=== PATIENT | male | born 1980 | race Caucasian/White ===

== ENCOUNTER 2024-02-29 11:44 | Emergency (ER) | payer SELFPAY ==
[2024-02-29] MEDS ORDERED: Zofran 4 MG/2 ML VIAL ONE (12:14)
[2024-02-29] MEDS ORDERED: MORPHINE SULFATE 4 MG INJ ONE (12:15)
[2024-02-29] MEDS ORDERED: Sodium Chloride 0.9% 1000 ML 1,000 ML ONE (12:15)
[2024-02-29 12:16] VITALS: TEMP 96.6
[2024-02-29] MEDS: Zofran 4 MG/2 ML VIAL IV ONE (12:18)
[2024-02-29] MEDS: MORPHINE SULFATE 4 MG INJ IV ONE (12:18)
[2024-02-29] MEDS: Sodium Chloride 0.9% 1000 ML 1,000 ML IV STA (12:18)
[2024-02-29 12:22] LABS: Absolute Neutrophil Ct (ANC) 11.63 x10^3/uL (1.78-5.38); BASOPHIL % 0.4 % (0.2-1.2); Basophil (Absolute #) 0.07 x10^3/uL (0.01-0.08); Eosinophil % 2.1 % (0.8-7.0); Eosinophil (Absolute #) 0.33 x10^3/uL (0.04-0.54); Hematocrit 48.4 % (40.1-51.0); Hemoglobin 15.8 g/dL (13.7-17.5); IMMATURE GRAN # 0.08 x10^3u/L (0.001-0.031); IMMATURE GRAN % 0.5 % (0.001-0.429); Lymphocyte (Absolute #) 2.37 x10^3/uL (1.32-3.57); Lymphocytes % 15.1 % (21.8-53.1); Mean Cell Volume 86.3 fL (79.0-92.2); Mean Corpuscular Hemoglobin 28.2 pg (25.7-32.2); Mean Corpuscular Hgb Concent. 32.6 g/dL (32.3-36.5); Mean Platelet Volume 8.1 fL (9.4-12.4); Monocyte (Absolute #) 1.22 x10^3/uL (0.30-0.82); Monocytes % 7.8 % (5.3-12.2); Neutrophil % 74.1 % (34.0-67.9); Platelet Count 301 x10^3/uL (163-337); Red Blood Count 5.61 x10^6/uL (4.63-6.08); Red Cell Distribution Width 12.8 % (11.6-14.4); White Blood Count 15.7 x10^3/uL (4.23-9.07)
[2024-02-29 12:36] LABS: ALBUMIN 4.6 g/dL (3.5-5.0); ANION GAP 12.6 MEQ/L (5-15); BILIRUBIN,TOTAL 0.4 mg/dL (0.2-1.3); Calcium 9.7 mg/dL (8.4-10.2); Creatinine 1 1.54 mg/dL (0.66-1.25); Potassium 4.4 mmol/L (3.5-5.1)
--- NOTE | 2024-02-29 12:37 | ERPHSYRPT ---
- History of Present Illness Patient Subjective Stated Complaint: Right lower abdominal pain Triage Nursing Assessment: Patient ambulated back to ED and transferred self to bed. Patient A+O X 3. Patient's skin flushed and diaphoretic. Patient states he started having right lower abdominal discomfort early this am that has gotten worse. Patient complains of right lower abdominal pain 8/10 with nausea. Patient unable to get comfortable in bed. Physician History: Patient is 44-year-old male with sick significant past medical history of kidney stone was driving through [facility] while developed abdominal pain on the right lower quadrant. Patient states that he started having pain to 3 hours ago he tried to hold it so that he can reach his home but his pain got worse while driving show he stop by at [facility] emergency room. Patient denies any nausea vomiting. Patient also had a kidney stone in the past but he states that pain is not like the kidney stone. Pain is mainly in the right lower quadrant not radiating. Patient denies any diarrhea nausea vomiting. Timing/Duration: today Quality: cramping Abdominal Pain Onset Location: RLQ Pain Radiation: no radiation Severity of Pain-Max: moderate Severity of Pain-Current: moderate Modifying Factors: Improves With: nothing Associated Symptoms: denies symptoms Previous symptoms: no prior history Allergies/Adverse Reactions: doxycycline Allergy (Verified 02/29/24 11:59) Home Medications: Atenolol 50 mg [Tenormin 50 mg] 1 tab PO DAILY 02/29/24 [History] Gemfibrozil [Lopid] 600 mg PO BID 02/29/24 [History] Levothyroxine Sodium 1 tab PO DAILY 02/29/24 [History] Rosuvastatin Calcium 1 tab PO DAILY 02/29/24 [History] Venlafaxine HCl ER 75 mg [Effexor XR 75 MG] 3 cap PO DAILY 02/29/24 [History] Hx Influenza Vaccination/Date Given: No Hx Pneumococcal Vaccination/Date Given: No Immunizations Up to Date: Yes Travel Risk - International Travel Have you traveled outside of the country in past 3 weeks: No - Emerging Infectious Disease Are you exhibiting symptoms associated with any current EIDs: No - Review of Systems Constitutional: No Fever, No Chills Eyes: No Symptoms Ears, Nose, & Throat: No Symptoms Respiratory: No Cough, No Dyspnea Cardiac: No Chest Pain, No Edema, No Syncope Abdominal/Gastrointestinal: Abdominal Pain, Nausea, No Vomiting, No Diarrhea Genitourinary Symptoms: No Dysuria Musculoskeletal: No Back Pain, No Neck Pain Skin: No Rash Neurological: No Dizziness, No Focal Weakness, No Sensory Changes Psychological: No Symptoms Endocrine: No Symptoms All Other Systems: Reviewed and Negative - Past Medical History Pertinent Past Medical History: Yes Neurological History: No Pertinent History ENT History: No Pertinent History Cardiac History: High Cholesterol, Hypertension Respiratory History: No Pertinent History Endocrine Medical History: Hypothyroidism Musculoskeletal History: No Pertinent History GI Medical History: No Pertinent History History: No Pertinent History Psycho-Social History: Other Male Reproductive Disorders: No Pertinent History - Past Surgical History Past Surgical History: No Neuro Surgical History: No Pertinent History Cardiac: No Pertinent History Respiratory: No Pertinent History Gastrointestinal: No Pertinent History Genitourinary: No Pertinent History Musculoskeletal: No Pertinent History Male Surgical History: No Pertinent History - Social History Smoking Status: Never smoker Exposure to second hand smoke: No Drug Use: none - Social Determinants of Health Will the patient participate in the screening: Yes Do you worry about a steady place to live?: No Do you have any problems with any of the following?: No known problems In the past 12 months,have you had to go without utilities?: No Transportation Issues: No Has anyone in your support network made you feel unsafe?: No Have you or anyone in your house had to go without enough: No - Nursing Vital Signs Nursing Vital Signs: Initial Vital Signs O2 Sat by Pulse Oximetry 97 02/29/24 11:58 Pain Scale Pain Intensity 5 - Physical Exam General Appearance: no apparent distress, alert Eye Exam: PERRL/EOMI, eyes nml inspection Ears, Nose, Throat Exam: normal ENT inspection, pharynx normal, moist mucous membranes Neck Exam: normal inspection, non-tender, supple, full range of motion Respiratory Exam: normal breath sounds, lungs clear, No respiratory distress Cardiovascular Exam: regular rate/rhythm, normal heart sounds Gastrointestinal/Abdomen Exam: soft, tenderness (RLQ), No distention, No mass, No guarding, No rebound Back Exam: normal inspection, normal range of motion, No CVA tenderness, No vertebral tenderness Extremity Exam: normal inspection, normal range of motion, pelvis stable Neurologic Exam: alert, oriented x 3, cooperative, normal mood/affect, nml cerebellar function, sensation nml, No motor deficits Skin Exam: normal color, warm, dry SpO2: 96 - Course Nursing assessment & vital signs reviewed: Yes - CT Exams Abdomen/Pelvis CT Interpretation: Tele-radiologist Report Ordered Tests: Active Orders 24 hr Category Date Time Status ABDOMEN AND PELVIS W CONTRAST [CT] Stat Exams 02/29/24 12:11 Completed AMYLASE Stat Lab 02/29/24 11:40 Completed CBC W DIFF Stat Lab 02/29/24 11:40 Completed CMP Stat Lab 02/29/24 11:40 Completed LIPASE Stat Lab 02/29/24 11:40 Completed UA W/RFX UR CULTURE Stat Lab 02/29/24 14:03 Completed Medication Summary Discontinued Medications Generic Name Dose Route Start Last Admin Trade Name Freq PRN Reason Stop Dose Admin Fentanyl Citrate 100 mcg 02/29/24 14:10 02/29/24 14:14 Fentanyl Citrate 100 Mcg/2 Ml* Vial IV 02/29/24 14:11 100 mcg STAT ONE Administration Fentanyl Citrate Confirm 02/29/24 14:13 Fentanyl Citrate 100 Mcg/2 Ml* Vial Administered 02/29/24 14:14 Dose 100 mcg .ROUTE .STK-MED ONE Sodium Chloride 1,000 mls @ 999 mls/hr 02/29/24 12:10 02/29/24 13:20 Sodium Chloride 0.9% 1000 Ml IV 02/29/24 13:10 Infused .Q1H1M STA Infusion Sodium Chloride Confirm 02/29/24 12:15 Sodium Chloride 0.9% 1000 Ml Administered 02/29/24 12:16 Dose 1,000 mls @ ud .ROUTE .STK-MED ONE Cefazolin Sodium 1 gm in 100 mls @ 200 mls/hr 02/29/24 13:09 02/29/24 14:04 Cefazolin 1 Gm/100 Ml Nacl Ivpb IV 02/29/24 13:38 Infused STAT STA Infusion Cefazolin Sodium Confirm 02/29/24 13:23 Cefazolin 1 Gm/100 Ml Nacl Ivpb Administered 02/29/24 13:24 Dose 1 gm in 100 mls @ ud IV .STK-MED ONE Morphine Sulfate 4 mg 02/29/24 12:10 02/29/24 12:18 Morphine Sulfate 4 Mg/Ml Injection IV 02/29/24 12:11 4 mg STAT ONE Administration Morphine Sulfate Confirm 02/29/24 12:15 Morphine Sulfate 4 Mg/Ml Injection Administered 02/29/24 12:16 Dose 4 mg .ROUTE .STK-MED ONE Ondansetron HCl 4 mg 02/29/24 12:10 02/29/24 12:18 Ondansetron Hcl 4 Mg/2 Ml Vial IV 02/29/24 12:11 4 mg STAT ONE Administration Ondansetron HCl Confirm 02/29/24 12:14 Ondansetron Hcl 4 Mg/2 Ml Vial Administered 02/29/24 12:15 Dose 4 mg .ROUTE .STK-MED ONE Lab/Rad Data: Laboratory Result Diagrams 02/29/24 11:40 02/29/24 11:40 Laboratory Results 02/29/24 02/29/24 02/29/24 Range/Units 14:03 11:40 11:40 WBC 15.7 H (4.23-9.07) x10^3/uL RBC 5.61 (4.63-6.08) x10^6/uL Hgb 15.8 (13.7-17.5) g/dL Hct 48.4 (40.1-51.0) % MCV 86.3 (79.0-92.2) fL MCH 28.2 (25.7-32.2) pg MCHC 32.6 (32.3-36.5) g/dL RDW 12.8 (11.6-14.4) % Plt Count 301 (163-337) x10^3/uL MPV 8.1 L (9.4-12.4) fL Gran % 74.1 H (34.0-67.9) % Immature Gran % (Auto) 0.5 H (0.001-0.429) % Nucleat RBC Rel Count 0.0 (0.00-0.2) % Eos # (Auto) 0.33 (0.04-0.54) x10^3/uL Immature Gran # (Auto) 0.08 H (0.001-0.031) x10^3u/L Absolute Lymphs (auto) 2.37 (1.32-3.57) x10^3/uL Absolute Monos (auto) 1.22 H (0.30-0.82) x10^3/uL Absolute Nucleated RBC 0.00 (0.00-0.012) x10^3u/L Lymphocytes % 15.1 L (21.8-53.1) % Monocytes % 7.8 (5.3-12.2) % Eosinophils % 2.1 (0.8-7.0) % Basophils % 0.4 (0.2-1.2) % Absolute Granulocytes 11.63 H (1.78-5.38) x10^3/uL Basophils # 0.07 (0.01-0.08) x10^3/uL Sodium 138 (135-145) mmol/L Potassium 4.4 (3.5-5.1) mmol/L Chloride 100 (98-107) mmol/L Carbon Dioxide 30 (22-30) mmol/L Anion Gap 12.6 (5-15) MEQ/L BUN 19 (9-20) mg/dL Creatinine 1.54 H (0.66-1.25) mg/dL Estimated GFR 56.0 ML/MIN Glucose 129 H (74-106) mg/dL Calcium 9.7 (8.4-10.2) mg/dL Total Bilirubin 0.40 (0.2-1.3) mg/dL AST 41 (17-59) U/L ALT 29 (0-50) U/L Alkaline Phosphatase 56 (38-126) U/L Serum Total Protein 8.0 (6.3-8.2) g/dL Albumin 4.6 (3.5-5.0) g/dL Amylase 50 (30-110) U/L Lipase 183 (23-300) U/L Urine Color Yellow (Yellow) Urine Appearance Clear (Clear) Urine pH 5.0 (4.6-8.0) Ur Specific Curtiss >=1.030 A (1.005-1.030) Urine Protein Trace A (Negative) Urine Glucose (UA) Negative (Negative) mg/dL Urine Ketones Negative (Negative) Urine Blood Small A (Negative) Urine Nitrite Negative (Negative) Urine Bilirubin Negative (Negative) Urine Urobilinogen 0.2 (0.2) mg/dL Ur Leukocyte Esterase Negative (Negative) U Hyaline Cast (Auto) NONE SEEN (0-2) /LPF Urine Microscopic RBC 3-5 (0-5) /HPF Urine Microscopic WBC 0-2 (0-5) /HPF Ur Epithelial Cells None Seen (None Seen) /HPF Urine Bacteria None Seen (None Seen) /HPF Urine Culture Reflexed NO (NO) CLINICAL HISTORY: right side lower quadrant pain COMPARISON: None. TECHNIQUE: Contrast-enhanced CT of the abdomen and pelvis was performed, with the following protocol: axial images with, and reconstructed coronal and sagittal images. Intravenous contrast was administered. One of the following dose reduction techniques was utilized for this exam: Automated exposure control, adjustment of the mA and/or kV according to patient size, and use of iterative reconstruction. FINDINGS: Abdomen: Liver: Enlarged in size (22 mm in the right lobe span is seen ), preserved shape, and density. No focal lesions, cysts, or masses were identified. Hepatic vasculature and biliary ducts are unremarkable. Gallbladder and Biliary System: The gallbladder is normal in size and shape. No wall thickening, pericholecystic fluid, or gallstones were identified. The common bile duct is normal in caliber without dilation. Pancreas: PatientID: [id number] Patient Name: MANUEL MARY Exam Date: 02/29/2024 Procedure: ABDOMEN AND PELVIS W CONTRAST page 1 of 3 Pancreatic head, body, and tail are visualized and appear normal in size and density. No pancreatic masses or calcifications were noted. The pancreatic duct is not dilated. Spleen: Normal in size, shape, and density. No splenic lesions or masses were identified. Kidneys and Adrenal Glands: Mild dilatation of right pelvicalyceal system and mild prominent right ureter in its whole extent. A small 2.8 mm calculus at right ureterovesical junction. Mild perinephric fat stranding around right kidney. Both kidneys are normal in size, shape, and position. Cortical thickness is within normal limits. No renal calculi or hydronephrosis in left kidney. Adrenal glands are unremarkable with no evidence of masses or hyperplasia. The umbilical hernial sac is seen harboring omental fat noted. Pelvis: Urinary Bladder: Normal in contour and wall thickness. No intraluminal lesions were identified. Prostate: Dense prostatic calcification noted. Normal in size and contour. No focal lesions or masses were identified. Seminal Vesicles: Normal in size and appearance. No abnormalities were noted. Rectum and Sigmoid Colon: Normal wall thickness and no evidence of mass. Peritoneal and Retroperitoneal Structures: No free fluid or abnormal fluid collections were identified within the abdomen or pelvis. No lymphadenopathy was noted. Bowel: The visualized bowel loops are normal in caliber and appearance. No evidence of bowel obstruction or wall thickening. Appendinx could not be clearly visualized. Bones and Soft Tissues: Moderate spondylosis of the lumbar spine was noted. Pelvic bones and soft tissues are unremarkable. No fractures or abnormal masses were identified. Right lower lung lobe dense calcified nodule is seen. IMPRESSION: 1. Mild right hydroureteronephrosis secondary to small 2.8 mm calculus at the right vesicoureteric junction causing mild right obstructive uropathy. 2. Hepatomegaly noted. PatientID: [id number] Patient Name: MANUEL MARY Exam Date: 02/29/2024 Procedure: ABDOMEN AND PELVIS W CONTRAST page 2 of 3 3. Umbilical hernia harboring omental fat. 4. Moderate spondylosis of the lumbar spine was noted. Electronically Signed by: Gwendolyn Ventura MD. (02/29/2024 1 - Progress Progress: improved, pain not gone completely Counseled pt/family regarding: lab results, diagnosis, need for follow-up, rad results Medical Desision Making - Independent Historian Additional History obtained from: Spouse - Diagnostic Testing Diagnostic test were ordered, analyzed, and reviewed by me: Yes Radiological Interpretation: Teleradiologist Report - Risk of complications The pt has a mod risk of morbidity or mortality based on: Need for minor surgical intervention in patient with know risk factors - Departure Departure Disposition: Home Clinical Impression: Right ureteral calculus Condition: Stable Critical Care Time: No Referrals: DOCTOR,NO FAMILY [Primary Care Provider] - Follow up/PCP as directed Instructions: Kidney stones in adults, How to Strain Your Urine, Kidney Stone, Adult ED Additional Instructions: Flexeril 10 mg PO TID for 5 days . Prescription given Discharge/Care Plan MANUEL MARY was seen on 02/29/24 in the Emergency Room. The patient was counseled regarding Diagnosis,Lab results, Imaging studies, need for follow up and when to return to the Emergency Room. Prescriptions given: Discharge Note I have spoken with the patient and/or caregivers. I have explained the patient's condition, diagnosis and treatment plan based on the information available to me at this time. I have answered the patient's and/or caregiver's questions and addressed any concerns. The patient and/or caregivers have as good understanding of the patient's diagnosis, condition and treatment plan as can be expected at this point. The vital signs have been stable. The patient's condition is stable and appropriate for discharge from the emergency department. The patient will pursue further outpatient evaluation with the primary care physician or other designated or consulting physician as outlined in the discharge instructions. The patient and/or caregivers are agreeable to this plan of care and follow-up instructions have been explained in detail. The patient and/or caregivers have received these instruction. The patient/and or caregivers are aware that any significant change in condition or worsening of symptoms should prompt an immediate return to this or the closest emergency department or call 911. MANUEL MARY was seen on 02/29/24 n the Emergency Room. At that time you were treated for an emergent condition, during your visit Laboratory, Radiology and/or other procedures may have been ordered. It is very important that you follow-up with your Primary Care Physician NO FAMILY DOCTOR within the next 24- 48 hours to review your Emergency Room visit and the final results of testing that was ordered. Some test results such as Urine Cultures, Blood Cultures, and other cultures if ordered will not be finalized for 24-48 hours. If you do not have a Primary Care Provider please call the medical records department at [phone] ext [phone] to obtain a copy of your results or you may sign into our patient portal to obtain these results by visiting us @ [email or web address] and completing the following steps: 1. Click on the Patient Portal link 2. Click the Patient Self Enrollment Link to complete the enrollment form and entering your 3. Once the enrollment form is completed you will receive an email with a temporary ID and password at the email address you provided. 4. Next choose a user name and password. Your user name must be at least 4 characters long and your password must be at least 4 characters long. 5. Choose a security question from the list and provide your answer to the question. If you already have signed into the Health Portal you may access your Health Care Information 08/10 by the following steps: 1. Login to our website @ [email or web address] 2. Enter your original user name and password. FAQS The [facility] Health Portal is an online tool that contains your Lab Results, Radiology Reports, Visit History, Discharge Instructions and Health Summary Lab and Radiology Results will not be available for 72 hours on the portal. The Portal is a secure site, passwords are encryted and URLs are re-written so they cannot be copied and pasted. You and authorized family members are the only ones who can access your Portal. Also there is a timeout feature that protects your information if you leave the Portal page open. If you have technical difficulty please use the Contact Us link on the page this will allow you to submit any questions you have regarding the Portal or you may contact the Medical Record Department at [phone] ext [phone].
[2024-02-29 13:13] VITALS: RESP 18
[2024-02-29] MEDS ORDERED: CEFAZOLIN 1 GM/100 ML NACL IVPB 1 GM/100 ML IVPB IV ONE (13:23)
[2024-02-29] MEDS: CEFAZOLIN 1 GM/100 ML NACL IVPB 1 GM/100 ML IVPB IV STA (13:24)
[2024-02-29] MEDS ORDERED: SUBLIMAZE 100 MCG/2 ML ONE (14:13)
[2024-02-29] MEDS: SUBLIMAZE 100 MCG/2 ML IV ONE (14:14)
[2024-02-29 14:38] LABS: Appearance Clear (Clear); Bacteria None Seen /HPF (None Seen); Bilirubin Negative (Negative); Blood Small (Negative); Epithelial Cells None Seen /HPF (None Seen); Glucose, Urine Negative (Negative); Hyaline Casts NONE SEEN /LPF (0-2); Ketones Negative (Negative); Leukocyte Esterase Negative (Negative); Nitrite Negative (Negative); Protein,Urine Dip Trace (Negative); Specific Gravity >=1.030 (1.005-1.030); Urobilinogen 0.2 mg/dL (0.2); WBC 0-2 /HPF (0-5)
--- NOTE | 2024-02-29 14:53 | XRAY ---
CLINICAL HISTORY: right side lower quadrant pain COMPARISON: None. TECHNIQUE: Contrast-enhanced CT of the abdomen and pelvis was performed, with the following protocol: axial images with, and reconstructed coronal and sagittal images. Intravenous contrast was administered. One of the following dose reduction techniques was utilized for this exam: Automated exposure control, adjustment of the mA and/or kV according to patient size, and use of iterative reconstruction. FINDINGS: Abdomen: Liver: Enlarged in size (22 mm in the right lobe span is seen ), preserved shape, and density. No focal lesions, cysts, or masses were identified. Hepatic vasculature and biliary ducts are unremarkable. Gallbladder and Biliary System: The gallbladder is normal in size and shape. No wall thickening, pericholecystic fluid, or gallstones were identified. The common bile duct is normal in caliber without dilation. Pancreas: Pancreatic head, body, and tail are visualized and appear normal in size and density. No pancreatic masses or calcifications were noted. The pancreatic duct is not dilated. Spleen: Normal in size, shape, and density. No splenic lesions or masses were identified. Kidneys and Adrenal Glands: Mild dilatation of right pelvicalyceal system and mild prominent right ureter in its whole extent. A small 2.8 mm calculus at right ureterovesical junction. Mild perinephric fat stranding around right kidney. Both kidneys are normal in size, shape, and position. Cortical thickness is within normal limits. No renal calculi or hydronephrosis in left kidney. Adrenal glands are unremarkable with no evidence of masses or hyperplasia. The umbilical hernial sac is seen harboring omental fat noted. Pelvis: Urinary Bladder: Normal in contour and wall thickness. No intraluminal lesions were identified. Prostate: Dense prostatic calcification noted. Normal in size and contour. No focal lesions or masses were identified. Seminal Vesicles: Normal in size and appearance. No abnormalities were noted. Rectum and Sigmoid Colon: Normal wall thickness and no evidence of mass. Peritoneal and Retroperitoneal Structures: No free fluid or abnormal fluid collections were identified within the abdomen or pelvis. No lymphadenopathy was noted. Bowel: The visualized bowel loops are normal in caliber and appearance. No evidence of bowel obstruction or wall thickening. Appendinx could not be clearly visualized. Bones and Soft Tissues: Moderate spondylosis of the lumbar spine was noted. Pelvic bones and soft tissues are unremarkable. No fractures or abnormal masses were identified. Right lower lung lobe dense calcified nodule is seen. IMPRESSION: 1. Mild right hydroureteronephrosis secondary to small 2.8 mm calculus at the right vesicoureteric junction causing mild right obstructive uropathy. 2. Hepatomegaly noted. 3. Umbilical hernia harboring omental fat. 4. Moderate spondylosis of the lumbar spine was noted. Electronically Signed by: Gwendolyn Ventura MD. (02/29/2024 14:49:49 EST)
[2024-02-29] MEDS ORDERED: Norflex 60 MG/2 ML ONE (15:23)
[2024-02-29] MEDS ORDERED: TORAdol 30 mg Injection ONE (15:23)
[2024-02-29] MEDS: TORAdol 30 mg Injection IV ONE (15:24)
[2024-02-29] MEDS: Norflex 60 MG/2 ML IV ONE (15:25)
[2024-02-29] MEDS: Norflex 60 MG/2 ML IM ONE ×2 (15:26→15:28)
[2024-02-29 15:40] VITALS: BP 191/91; PULSE 90; O2SAT 97
== END 2024-02-29 15:35 | disposition home or self-care (01) ==
LOC: ED 11:44
DX: N20.1 Calculus of ureter (principal); R10.31 Right lower quadrant pain
CPT/HCPCS: 36415; 74177; 80053; 81001; 82150; 83690; 85025; 96360; 96365; 96372; 96374; 96375; 99285; J0690; J1885; J2270; J2360; J2405; J3010; Q9967